=== PATIENT | male | born 1965 | race Caucasian/White ===

== ENCOUNTER 2024-07-07 11:33 | Emergency (ER) | payer BC ==
[~2024-07-07] VITALS: Ht 175.3 cm; Wt 111.6 kg
[~2024-07-07 11:33] MED LIST changes: -LOSARTAN-HCTZ1 EAC6 PO
[2024-07-07] MEDS ORDERED: Furosemide 10 MG / ML 2ML Vial IV ONE (17:05)
[2024-07-07] MEDS ORDERED: LOSARTAN-HCTZ1 EAC6 PO (17:26)
[2024-07-07] MEDS ORDERED: ATOR20 PO (17:26)
[2024-07-07 18:02] VITALS: BP 181/132
== END 2024-07-07 18:06 | disposition home or self-care (01) ==
LOC: ER 11:33
DX: R60.0 Localized edema (principal); R79.89 Other specified abnormal findings of blood chemistry; R06.02 Shortness of breath; I10 Essential (primary) hypertension; Z79.899 Other long term (current) drug therapy; Z59.89 Other problems related to housing and economic circumstances
CPT/HCPCS: 83880; 84484; 93005; 93010; 96374; 99285-25; J1940

== ENCOUNTER → 2024-07-07 | Outpatient (CLI) | payer BC ==
[~2024-07-07] MED LIST: ATOR20 PO; CRUTCH4 USE; HYDACE5 PO; LOSARTAN-HCTZ1 EAC2 PO; LOSARTAN-HCTZ1 EAC6 PO; Multivitamin1 EAC1 PO; RXHYDACE PO; ZOLP10
[2024-07-07 08:47] LABS: BASOPHILS ABSOLUTE AUTO 0.08 K/mm3 (0.00-0.23); BASOPHILS PERCENT AUTO 1 % (0-2); EOSINOPHILS ABSOLUTE AUTO 0.14 K/mm3 (0.00-0.68); EOSINOPHILS PERCENT AUTO 1 % (0-6); Hemoglobin 14.4 g/dL (13.5-17.5); IMMATURE GRAN ABSOLUTE AUTO 0.05 K/mm3 (0.00-0.10); IMMATURE GRAN PERCENT AUTO 0 % (0-1); LYMPHOCYTES ABSOLUTE AUTO 3.11 K/mm3 (0.84-5.20); LYMPHOCYTES PERCENT AUTO 27 % (21-46); MONOCYTES ABSOLUTE AUTO 0.96 K/mm3 (0.16-1.47); MONOCYTES PERCENT AUTO 8 % (4-13); Mean Corpuscular HGB 30.4 pg (26.0-34.0); Mean Corpuscular HGB Conc 33.5 g/dL (31.5-36.5); Mean Corpuscular Volume 91 fL (80-100); NEUTROPHILS PERCENT AUTO 63 % (41-73); Platelet Count 299 K/mm3 (150-400); RDW Coefficient Variation 13.7 % (11.7-14.2); RDW Standard Deviation 45.5 fL (35.1-46.3); Red Blood Cell Count 4.73 M/mm3 (4.30-5.90); White Blood Cell Count 11.74 K/mm3 (4.00-11.30)
[2024-07-07 08:57] LABS: Albumin, Blood 2.9 g/dL (3.4-5.0); Albumin/Globulin Ratio 0.9 (0.8-1.8); Bilirubin, Total 0.5 mg/dL (0.1-1.0); Bun/Creatinine Ratio 21.6 (12.0-20.0); Creatinine, Blood 1.11 mg/dL (0.60-1.20); Globulin, Blood 3.1 g/dL (2.2-4.0); Potassium, Blood 3.7 mmol/L (3.5-5.5)
== END ==
LOC: LAB 08:41 → LAB SHORT 08:41
PROVIDERS: Physician Assistant
DX: R06.00 Dyspnea, unspecified (principal)
CPT/HCPCS: 80053; 83880; 84484; 85025

== ENCOUNTER 2024-07-14 12:49 | Inpatient (IN) | payer BC ==
[~2024-07-14] VITALS: Ht 175.3 cm; Wt 104.5 kg
[~2024-07-14 12:49] MED LIST changes: +LOSARTAN-HCTZ1 EAC6 PO
[2024-07-14] MEDS ORDERED: K-Dur20 MEQ PO (13:35)
[2024-07-14] MEDS ORDERED: LOSA25 PO (13:35)
[2024-07-14] MEDS ORDERED: FURO40 PO (13:35)
[2024-07-14] MEDS ORDERED: Crestor40 MG PO (13:36)
[2024-07-14 13:40] VITALS: BP 195/131
[2024-07-14] MEDS ORDERED: Labetalol HCL 5 MG/ML 4ML Injection (Single Dose) IV PRN (13:55)
[2024-07-14] MEDS ORDERED: Nicotine 14 MG PATCH TOP PRN (14:00)
[2024-07-14] MEDS ORDERED: Furosemide 10 MG / ML 2ML Vial IV ONE (14:00)
--- NOTE | 2024-07-14 14:00 | NUR ---
ADMISSION NOTE PATIENT DIRECT ADMIT FROM [facility] THIS AFTERNOON AROUND 1300. PATIENT ADMITTED WITH ELEVATED TRIPONIN AND NEW ONSET CHF. BLE EDEMA 2+, PATIENT COMPLAINING FO SOB FOR THE LAST FEW MONTHS WITH PRODUCTIVE COUGH INTERMITTENTLY, NONE NOTED THUS FAR. PATIENT'S BROTHER AT BEDSIDE DURING ADMISSION. BP UPON ADMISSION ELEVTAED 195/131, IV LABETALOL AND LASIX ADMINISTERED PER MAY. BP RECHECKED AFTER ADMINISTRATION AND 150s-110s. TELEMETRY IN PLACE, NORMAL SINUS RHYTHYM IN 90s. SPO2 WNL ON ROOM AIR. HEART HEALTHY DIET ORDERED PER DR. SHEARER. PLAN TO HAVE ECHOCARDIOGRAM AND LIVER ULTRASOUND. IV PLACED TO LEFT HAND, 22G. PATIENT STATES HE CHEWS TOBACCO, DENIES NEED FOR NICOTINE PATCH BUT ORDER RECIEVED FROM DR. SHEARER PRN. WILL CONTINUE TO MONITOR.
[2024-07-14 14:29] VITALS: BP 150/116
[2024-07-14 14:29] LABS: BASOPHILS ABSOLUTE AUTO 0.08 K/mm3 (0.00-0.23); BASOPHILS PERCENT AUTO 1 % (0-2); EOSINOPHILS ABSOLUTE AUTO 0.15 K/mm3 (0.00-0.68); EOSINOPHILS PERCENT AUTO 1 % (0-6); Hematocrit 44.2 % (37.0-53.0); Hemoglobin 14.6 g/dL (13.5-17.5); IMMATURE GRAN ABSOLUTE AUTO 0.06 K/mm3 (0.00-0.10); IMMATURE GRAN PERCENT AUTO 1 % (0-1); LYMPHOCYTES ABSOLUTE AUTO 2.94 K/mm3 (0.84-5.20); LYMPHOCYTES PERCENT AUTO 23 % (21-46); MONOCYTES ABSOLUTE AUTO 0.95 K/mm3 (0.16-1.47); MONOCYTES PERCENT AUTO 7 % (4-13); Mean Corpuscular HGB 30.9 pg (26.0-34.0); Mean Corpuscular Volume 93 fL (80-100); Mean Platelet Volume 10.6 fL (9.1-12.4); NEUTROPHILS ABSOLUTE AUTO 8.87 K/mm3 (1.96-9.15); NEUTROPHILS PERCENT AUTO 68 % (41-73); Platelet Count 314 K/mm3 (150-400); RDW Coefficient Variation 13.9 % (11.7-14.2); RDW Standard Deviation 47.3 fL (35.1-46.3); Red Blood Cell Count 4.73 M/mm3 (4.30-5.90); White Blood Cell Count 13.05 K/mm3 (4.00-11.30)
[2024-07-14 14:44] LABS: Albumin, Blood 2.8 g/dL (3.4-5.0); Albumin/Globulin Ratio 0.8 (0.8-1.8); Bilirubin, Total 0.4 mg/dL (0.1-1.0); Bun/Creatinine Ratio 30.7 (12.0-20.0); Calcium, Blood 8.8 mg/dL (8.5-10.1); Creatinine, Blood 0.91 mg/dL (0.60-1.20); Globulin, Blood 3.4 g/dL (2.2-4.0); Potassium, Blood 3.7 mmol/L (3.5-5.5); Total Protein, Blood 6.2 g/dL (6.4-8.2)
--- NOTE | 2024-07-14 15:20 | NUR ---
CRITICAL RESULT DEE FROM LAB CALLED TO REPORT CRITICAL RESULT OF TRIPONIN 203 AT 1509 THIS SHIFT. MD NOTIFIED VIA TELEPHONE, BETZAIDAONIN TRENDING DOWN PER MD.
[2024-07-14 15:55] VITALS: BP 149/100
--- NOTE | 2024-07-14 16:24 | NUR ---
CRITICAL RESULT CRITICAL RESULT REPORTED FROM [facility] IN LAB. BUDDY Chong MD NOTIFIED. DR. SHEARER STATES TO DIAPENDING SALE TO [facility] LAB DRAWS IF LOWER THAT 226 ON NEXT LAB DRAW.
--- NOTE | 2024-07-14 17:59 | NUR ---
SHIFT SUMMARY: ECHOCARDIOGRAM PERFORMED, EF 15%, MD NOTIFIED VIA TELEPHONE. CONSULT WITH CARDIOLOGY 07/15/2024. CRITICAL TROPONIN NOTED, MD NOTIFIED. ONE TIME LASIX DOSE ADMINISTERED PER MAR. IV LEFT HAND 22 GAUGE.
[2024-07-14] MEDS ORDERED: Metoprolol Succinate 25 MG TABCR PO SCH (19:00)
--- NOTE | 2024-07-14 19:02 | NUR ---
CRITICAL RESULT DEE FROM LAB CALLED TO NOTIFY OF CRITICAL RESULT TROPONIN 226, STATED LAST DRAW IF TROPONIN REMAINS THE SAME O0R DECREASED TO DISCONTINUE TROPONIN LAB DRAWS. PATIENT STATUS REMIANS THE SAME, NO OTHER CONCERNS AT THIS TIME.
[2024-07-14 19:08] VITALS: BP 170/130
[2024-07-14] MEDS ORDERED: Melatonin 3 MG Tab PO PRN (23:05)
[2024-07-14 23:31] VITALS: BP 159/96
[2024-07-15 03:54] VITALS: BP 161/113
--- NOTE | 2024-07-15 03:57 | NUR ---
PT REPORTS NOT USING URINAL WHEN GOING TO THE RESTROOM. HE IS INDEPENDENT IN ROOM. THIS RN EDUCATED THE PT ON IMPORTANCE OF TRACKING INTAKE AND OUTPUT DURING HIS STAY. PT WILL BEGIN TO USE URINAL AND ALERT STAFF TO EMPTY IT IN THE FUTURE.
--- NOTE | 2024-07-15 04:03 | NUR ---
SHIFT SUMMARY: A0X4, PT ANXIOUS ABOUT NEW DX OF HF, TEARFUL W/ STAFF. ALTHOUGH PT IS COOPERATIVE W/ HIS CARE AND MAKES HIS NEEDS KNOWN. ON TELE SINUS TACH HRs >100s. HYPERTENSIVE THROUGHOUT SHIFT SBPS >150S-180S, PARAMATERS TO FOLLOW PER EMAR W/ LABETOLOL. DENIES CP, CHEST PRESSURE OR SOB, DOES HAVE A COUGH D/T HF SEE ASSESSMENT NOTE, NO ACUTE CHANGES THROUGHOUT SHIFT, PT RESTING COMFORTABLY WITH EYES CLOSED, BED AT LOWEST POSITION, CALL LIGHT WITHIN REACH.
--- NOTE | 2024-07-15 04:24 | NUR ---
REVIEWED [employer] NOTES AND AM IN AGREEMENT.
[2024-07-15 04:35] LABS: BASOPHILS PERCENT AUTO 1 % (0-2); EOSINOPHILS ABSOLUTE AUTO 0.22 K/mm3 (0.00-0.68); EOSINOPHILS PERCENT AUTO 1 % (0-6); Hematocrit 45.1 % (37.0-53.0); Hemoglobin 14.9 g/dL (13.5-17.5); IMMATURE GRAN ABSOLUTE AUTO 0.07 K/mm3 (0.00-0.10); IMMATURE GRAN PERCENT AUTO 1 % (0-1); LYMPHOCYTES ABSOLUTE AUTO 3.11 K/mm3 (0.84-5.20); LYMPHOCYTES PERCENT AUTO 20 % (21-46); MONOCYTES ABSOLUTE AUTO 1.02 K/mm3 (0.16-1.47); MONOCYTES PERCENT AUTO 7 % (4-13); Mean Corpuscular HGB 30.3 pg (26.0-34.0); Mean Corpuscular Volume 92 fL (80-100); Mean Platelet Volume 10.3 fL (9.1-12.4); NEUTROPHILS ABSOLUTE AUTO 10.81 K/mm3 (1.96-9.15); NEUTROPHILS PERCENT AUTO 70 % (41-73); Platelet Count 312 K/mm3 (150-400); RDW Coefficient Variation 13.9 % (11.7-14.2); RDW Standard Deviation 46.6 fL (35.1-46.3); Red Blood Cell Count 4.92 M/mm3 (4.30-5.90); White Blood Cell Count 15.33 K/mm3 (4.00-11.30)
[2024-07-15 05:06] LABS: Bun/Creatinine Ratio 28.9 (12.0-20.0); Calcium, Blood 8.6 mg/dL (8.5-10.1); Creatinine, Blood 0.83 mg/dL (0.60-1.20); Potassium, Blood 3.2 mmol/L (3.5-5.5)
[2024-07-15 07:49] VITALS: BP 159/115
[2024-07-15] MEDS ORDERED: Furosemide 10 MG/ML 4ML Vial IV SCH (08:00)
[2024-07-15] MEDS ORDERED: Potassium Chloride 20 MEQ TabCR PO ONE (08:00)
[2024-07-15] MEDS ORDERED: Spironolactone 25 MG Tab PO SCH (09:00)
[2024-07-15] MEDS ORDERED: Carvedilol 6.25 MG Tab PO SCH (09:00)
[2024-07-15] MEDS ORDERED: Losartan Potassium 25 MG Tab PO SCH (09:00)
[2024-07-15] MEDS ORDERED: Losartan Potassium 50 MG Tab PO SCH (09:00)
[2024-07-15] MEDS ORDERED: Enoxaparin 40 MG/0.4 ML SYR SC SCH (09:00)
[2024-07-15 09:07] LABS: CHOL/HDL RATIO 3.3; Cholesterol 139 mg/dL (50-200); HDL Cholesterol 42 mg/dL (>39); LDL/HDL RATIO 1.7; Low Density Lipoprotein Chol 73 mg/dL (0-110); Triglycerides 119 mg/dL (30-160); Very Low Density Lipoprot Chol 23 mg/dL (6-32)
[2024-07-15 12:38] VITALS: BP 134/91
[2024-07-15 13:26] LABS: U Amphetamine Screen DETECTED; U Barbituate Screen Not Detected; U Benzodiazapine Screen Not Detected; U Buprenorphine Screen Not Detected; U Cannabinoids Screen Not Detected; U Cocaine Screen Not Detected; U Methadone Screen Not Detected; U Methamphetamine Screen DETECTED; U Opiates Screen Not Detected; U Oxycodone Screen Not Detected; U Phencyclidine Screen Not Detected
[2024-07-15 16:50] VITALS: BP 148/106
--- NOTE | 2024-07-15 18:40 | NUR ---
End of Shift Pt A&O x4. BP elevated, improved w/ medication. VSS. Spo2 > 92% on RA. Monitor showing SR-ST, HR 90s-110. Pt denying CP/discomfort. Pt c/o "mild headache" denying need for medication for. Urine tox screen completed this shift. Pt anticipating angiogram tomorrow. Pt understanding of need to be NPO after midnight for angiogram tomorrow.
[2024-07-15 19:54] VITALS: BP 135/95
[2024-07-15 23:05] VITALS: BP 139/82
[2024-07-16] VITALS (10 sets, daily range): BP systolic 143–164; BP diastolic 86–134
--- NOTE | 2024-07-16 05:16 | NUR ---
SHIFT SUMMARY PT A&O X4, ABLE TO MAKE NEEDS KNOWN, INDEPENDENT IN ROOM. EDUCATED PT AGAIN REGARDING IMPORTANCE OF USING THE URINAL FOR STAFF TO EVALUATE HIS OUTPUT. FLUID RESTRICTION OF 2000ML PER DAY. HE HAS BEEN NPO SINCE MIDNIGHT. PT REPORTS FEELING ANXIOUS REGARDING ANGIO PLANNED FOR TODAY AND EXPRESSES THAT HE JUST WANTS IT TO BE DONE WITH IT . PT DENIES CP AT THIS TIME. HE IS RESTING IN BED, BREATHING IS EVEN AND UNLABORED, CALL LIGHT IN REACH.
[2024-07-16 05:24] LABS: BASOPHILS PERCENT AUTO 1 % (0-2); EOSINOPHILS ABSOLUTE AUTO 0.18 K/mm3 (0.00-0.68); EOSINOPHILS PERCENT AUTO 1 % (0-6); Hemoglobin 15.2 g/dL (13.5-17.5); IMMATURE GRAN ABSOLUTE AUTO 0.05 K/mm3 (0.00-0.10); IMMATURE GRAN PERCENT AUTO 0 % (0-1); LYMPHOCYTES ABSOLUTE AUTO 3.51 K/mm3 (0.84-5.20); LYMPHOCYTES PERCENT AUTO 26 % (21-46); MONOCYTES ABSOLUTE AUTO 0.96 K/mm3 (0.16-1.47); MONOCYTES PERCENT AUTO 7 % (4-13); Mean Corpuscular HGB 30.2 pg (26.0-34.0); Mean Corpuscular Volume 91 fL (80-100); Mean Platelet Volume 10.3 fL (9.1-12.4); NEUTROPHILS ABSOLUTE AUTO 8.77 K/mm3 (1.96-9.15); NEUTROPHILS PERCENT AUTO 65 % (41-73); Platelet Count 319 K/mm3 (150-400); RDW Coefficient Variation 13.9 % (11.7-14.2); RDW Standard Deviation 46.6 fL (35.1-46.3); Red Blood Cell Count 5.04 M/mm3 (4.30-5.90); White Blood Cell Count 13.57 K/mm3 (4.00-11.30)
[2024-07-16 05:59] LABS: Calcium, Blood 8.6 mg/dL (8.5-10.1); Potassium, Blood 3.8 mmol/L (3.5-5.5)
[2024-07-16] MEDS ORDERED: NS 250 ML IV ONE (11:59)
[2024-07-16] MEDS ORDERED: NS 1,000 ML IV ONE ×2 (11:59→12:09)
[2024-07-16] MEDS ORDERED: Heparin Sodium 1000 Units/ML 10ML MDV ONE (11:59)
[2024-07-16] MEDS ORDERED: Verapamil HCL 2.5 MG/ML 2ML Injection ONE (11:59)
[2024-07-16] MEDS ORDERED: Nitroglycerin 2 MG/20 ML BTL ONE (11:59)
[2024-07-16] MEDS ORDERED: FentaNYL Citrate 50 MCG/ML 2 ML Injection ONE (12:09)
[2024-07-16] MEDS ORDERED: Midazolam HCl 1MG / ML 2ML Vial ONE (12:09)
--- NOTE | 2024-07-16 12:53 | NUR ---
Gone to [employer] Pt A&O x4. VSS. Spo2 > 92% on RA. Monitor showing SR, HR 70s-100. Pt NPO awaiting angiogram. HC nurses to , taking pt to HC for angiogram at approx 1230.
[2024-07-16] MEDS ORDERED: Phenylephrine HCl 100 MCG/ML-NS 10MLSYR (1MG/10ML) ONE (13:18)
[2024-07-16] MEDS ORDERED: Carvedilol12.5 MG PO (13:56)
[2024-07-16] MEDS ORDERED: Nicoderm Cq1 EAC1 TOP (13:57)
[2024-07-16] MEDS ORDERED: BUME1 PO (13:58)
[2024-07-16] MEDS ORDERED: SPIR25 PO (13:58)
== END 2024-07-16 16:19 | disposition home or self-care (01) | DRG 286 ==
LOC: PCU 12:49
PROVIDERS: Student in an Organized Health Care Education/Training Program; ADMIT Internal Medicine
PROC: B2111ZZ Fluoroscopy of Multiple Coronary Arteries using Low Osmolar Contrast (ICD-10-PCS; principal; 2024-07-16)
PROC: 4A023N8 Measurement of Cardiac Sampling and Pressure, Bilateral, Percutaneous Approach (ICD-10-PCS; 2024-07-16)
PROC: 4A133B3 Monitoring of Arterial Pressure, Pulmonary, Percutaneous Approach (ICD-10-PCS; 2024-07-16)
PROC: 4A1239Z Monitoring of Cardiac Output, Percutaneous Approach (ICD-10-PCS; 2024-07-16)
DX: I11.0 Hypertensive heart disease with heart failure (principal); I50.23 Acute on chronic systolic (congestive) heart failure; I25.10 Atherosclerotic heart disease of native coronary artery without angina pectoris; I27.22 Pulmonary hypertension due to left heart disease; I16.0 Hypertensive urgency; E78.5 Hyperlipidemia, unspecified; R94.5 Abnormal results of liver function studies; F17.220 Nicotine dependence, chewing tobacco, uncomplicated; I10 Essential (primary) hypertension; F15.90 Other stimulant use, unspecified, uncomplicated; R73.9 Hyperglycemia, unspecified; Z12.5 Encounter for screening for malignant neoplasm of prostate
CPT/HCPCS: 36415; 71046; 76937; 80048; 80053; 80061; 83036; 83880; 84153; 84154; 84443; 84484; 85025; 93306; 93456; 99152; A9270; C1769; C1887; C1894; J1644; J1650; J1940; J2250; J2371; J3010; J7030; J7050; Q9967